=== PATIENT | male | born 1945 | race Caucasian/White ===

== ENCOUNTER → 2017-05-20 | Outpatient (CLI) | payer OTHER | LOC: BHFA 15:30 | PROVIDERS: ATTEND Internal Medicine Cardiovascular Disease | DX: I49.9 Cardiac arrhythmia, unspecified (principal) ==

== ENCOUNTER 2017-06-20 07:59 | Observation (INO) | payer OTHER ==
[2017-06-20] MEDS ORDERED: methylPREDNISolone SOD SUCC 125 MG/2 ML VIAL IVP ONE (08:07)
[2017-06-20] MEDS ORDERED: FAMOTIDINE 20 MG/NACL 50 ML IV ONE (08:07)
[2017-06-20] MEDS ORDERED: ASPIRIN EC 325 MG TAB PO ONE (08:07)
[2017-06-20] MEDS ORDERED: NS 1,000 ML IV ONE (08:07)
[2017-06-20] MEDS ORDERED: DIAZEPAM 5 MG TAB PO ONE (08:07)
--- NOTE | 2017-06-20 08:28 | CPEKG ---
Heart Rate: 49 RR Interval: 1224 P-R Interval: 196 QRSD Interval: 94 QT Interval: 488 QTC Interval: 441 P [place]: 64 QRS [place]: 34 T Wave [place]: 36 EKG Severity - OTHERWISE NORMAL ECG - EKG Impression: SINUS BRADYCARDIA Electronically Signed By: Tony Delgado 23-Jun-2017 09:13:42
[2017-06-20] MEDS ORDERED: methylPREDNISolone SOD SUCC 125 MG/2 ML VIAL ONE (08:29)
[2017-06-20] MEDS ORDERED: FAMOTIDINE 20 MG/NACL/50 ML BAG IV ONE (08:29)
[2017-06-20 08:42] LABS: % IMMATURE GRANULYOCYTES 0.6 % (0.0-1.1); ABSOLUTE IMMATURE GRANULOCYTES 0.03 10^3/uL (0.00-0.10); ADD DIFF? NO; ADD MORPH? NO; ADD SCAN? NO; ATYPICAL LYMPHOCYTE FLAG 10 (0-99); FRAGMENT RBC FLAG 0 (0-99); HEMATOCRIT 43.3 % (40.0-51.0); HEMOGLOBIN 14.9 g/dL (13.7-17.5); LEFT SHIFT FLG 0 (0-99); LIPEMIA HEMOLYSIS FLAG 90 (0-99); MEAN CELL HEMOGLOBIN CONCENTR. 34.4 g/dL (32.4-36.7); MEAN CELL VOLUME 90.2 fL (81.5-99.8); MEAN PLATELET VOLUME 12.6 fL (8.7-11.7); PLATELET CLUMPS FLAG 0 (0-99); PLATELET COUNT 102 10^3/uL (150-400); RED CELL DISTRIBUTION WIDTH 13.2 % (11.5-15.2)
[2017-06-20 08:57] LABS: ANION GAP 12 mEq/L (8-16); CALCIUM 9.3 mg/dL (8.5-10.4); CARBON DIOXIDE 21 mEq/l (22-31); CHLORIDE 108 mEq/L (97-110); CHOLESTEROL 161 mg/dL (140-220); CHOLESTEROL/HDL RATIO 2.48 RATIO (1.00-4.97); GLOMERULAR FILTRATION RATE > 60; GLUCOSE 97 mg/dL (70-100); HIGH DENSITY LIPOPROTEIN 65 mg/dL (40-65); LDL/HDL RATIO 1.25 RATIO (1.00-3.64); LOW DENSITY LIPOPROTEIN 81 mg/dL (80-100); NON-HIGH DENSITY LIPOPROTEIN 96 mg/dL (90-129); POTASSIUM 4.3 mEq/L (3.5-5.2); SODIUM 141 mEq/L (134-144); TRIGLYCERIDE 79 mg/dL (40-150); VERY LOW DENSITY LIPOPROTEINS 15 mg/dL (8-25)
--- NOTE | 2017-06-20 09:00 | PDHPUP ---
History & Physical Update H&P update statement: This history and physical update is based on an assessment of the patient which was completed after admission or registration (within 24 hours), but prior to the surgery/procedure. H&P update: H&P reviewed & patient examined, no change in patient's condition since H&P completed
--- NOTE | 2017-06-20 09:01 | PDPROPOC ---
Sedation Plan of Care Sedation Plan of Care: vital signs stable, mental status noted, patient educated of risks, benefits, alternatives, patient can tolerate sedation ASA Classification: ASA 3 Planned drugs: fentanyl, midazolam Mallampati Score: Class 3 Mallampati Reference Image: Patient passed 3-3-2 rule?: Yes
[2017-06-20 09:17] LABS: INR 0.97 (0.83-1.16); PROTIME(PATIENT) 12.8 SEC (12.0-15.0)
[2017-06-20] MEDS ORDERED: IOPAMIDOL (ISOVUE-370) 150 ML BTL IV ONE (10:04)
[2017-06-20] MEDS ORDERED: LIDOCAINE 1% 300 MG/30 ML SDV ONE (10:04)
[2017-06-20] MEDS ORDERED: MIDAZOLAM 2 MG/2 ML VIAL ONE (10:04)
[2017-06-20] MEDS ORDERED: fentaNYL 100 MCG/2 ML INJ ONE (10:04)
[2017-06-20] MEDS ORDERED: VERAPAMIL 5 MG/2 ML VIAL ONE (10:05)
[2017-06-20] MEDS ORDERED: HEPARIN 10,000 UNIT/10 ML MDV ONE (10:05)
--- NOTE | 2017-06-20 10:47 | PDDXCAT ---
Diagnostic Cath Note - . Date: 06/20/17 Corporate Trainer: [employer] Indication: Class I/II angina, intolerance to med therapy or failure to respond , other (Abnormal stress test with ST elevation (transient)) - Procedure Access: right wrist Procedure: left heart catheterization - Materials Left Heart Cath size: 5F Left Heart Cath materials: standard multipack (JL4, JR4, pigtail) - Findings-Left Heart Catheterization LM: 7mm in size and bifurcates into an LAD and circumflex system. No flow limiting obstruction or significant plaque. LAD: 3.5mm vessel. There a luminal irregularities consistent with underlying atherosclerosis. Maximal luminal stenosis is approx 30%. No flow limiting obstruction, dissection, or thrombus is identified. FRANCISCO J III flow. LCX: 3mm in size approximately. After the first obtuse marginal takeoff there is a 77% plaque area stenosis via QCA. FRANCISCO J III flow throughout. RCA: 3mm in size and dominant giving rise to the PDA and a posterolateral ventricular branch. There is a 20% ostial stenosis. Luminal irregularities are present consistent with atheroscleosis. No flow limiting obstruction was identified. FRANCISCO J III flow. EDP: 15mmHg. LVEF: LVEF is 60% and normal. Wall motion: There is normal wall motion. No significant mitral regurgitation. Complications: NONE. Estimated blood loss: <50ml Closure method: TR Band Assessment: The patient has [place] vessel coronary artery disease with flow limiting obstruction of the circumflex, subsequently repaired with Drug Eluting Stent. Dr. Amaral performed an intraoperative consultation for bilateral carotid angiography, no flow limiting obstruction of the carotids was identified. Plan: Dual antiplatelet therapy with Aspirin 325mn for the first month followed by Aspirin 81mg along with Plavix 75mg daily should be continued for at least 1 year following drug eluting stent implantation. No elective surgery for the first 3 months. Decisions to stop dual antiplatelet therapy before 1 year should involve our office, [facility] [phone] Intervention: A 6 Indonesian EBU 3.5 Launcher was used for guide catheter support. An 0.014 Intuition Wire was advanced across the lesion in question under direct fluoroscopic and angiographic guidance. The 77% lesion of the circumflex was then primarily stented with a [employer] 2.75mm 16mm Drug Eluting Stent. The post stent residual obstruction was 0%. There was FRANCISCO J III flow pre and post stent implantation.
[2017-06-20] MEDS ORDERED: IOPAMIDOL (ISOVUE-300) 150 ML BTL ONE (11:27)
[2017-06-20] MEDS ORDERED: CLOPIDOGREL BISULFATE 75 MG TAB ONE ×2 (11:47→12:08)
[2017-06-20] MEDS ORDERED: ATROPINE SULFATE 1 MG/10 ML SYR IVP PRN (11:48)
[2017-06-20] MEDS ORDERED: OXYCODONE/APAP 5/325 TAB PO PRN (11:48)
[2017-06-20] MEDS ORDERED: TEMAZEPAM 15 MG CAP PO PRN (11:48)
[2017-06-20] MEDS ORDERED: CLOPIDOGREL BISULFATE 75 MG TAB PO ONE (11:48)
[2017-06-20] MEDS ORDERED: NITROGLYCERIN 0.4 MG BTL SL PRN (11:48)
[2017-06-20] MEDS ORDERED: ACETAMINOPHEN 325 MG TAB PO PRN (11:48)
[2017-06-20] MEDS ORDERED: LORazepam 2 MG/ML INJ IVP PRN (11:48)
[2017-06-20] MEDS ORDERED: NS 1,000 ML IV SCH (12:00)
--- NOTE | 2017-06-20 13:59 | CPEKG ---
Heart Rate: 51 RR Interval: 1176 P-R Interval: 204 QRSD Interval: 92 QT Interval: 484 QTC Interval: 446 P Edna: 55 QRS Edna: 29 T Wave Edna: 18 EKG Severity - NORMAL ECG - EKG Impression: SINUS RHYTHM Preliminary Awaiting MD Review
[2017-06-20] MEDS ORDERED: ZOLPIDEM TARTRATE 5 MG TAB PO PRN (14:27)
[2017-06-20] MEDS: Pentosan Polysulfate Sodium [Elmiron] 100 MG PO SCH ×2 (17:20→22:33)
[2017-06-20] MEDS: TAMSULOSIN HCL 0.4 MG CAP PO SCH (20:53)
[2017-06-20] MEDS ORDERED: ESCITALOPRAM OXALATE 10 MG TAB PO SCH (21:00)
[2017-06-20] MEDS ORDERED: buPROPion XL 150 MG TAB PO SCH (21:00)
[2017-06-21 04:54] LABS: % IMMATURE GRANULYOCYTES 0.4 % (0.0-1.1); ABSOLUTE IMMATURE GRANULOCYTES 0.04 10^3/uL (0.00-0.10); ADD DIFF? NO; ADD MORPH? NO; ADD SCAN? NO; ATYPICAL LYMPHOCYTE FLAG 0 (0-99); FRAGMENT RBC FLAG 0 (0-99); HEMATOCRIT 39.1 % (40.0-51.0); HEMOGLOBIN 13.2 g/dL (13.7-17.5); LEFT SHIFT FLG 0 (0-99); LIPEMIA HEMOLYSIS FLAG 90 (0-99); MEAN CELL HEMOGLOBIN 30.8 pg (27.9-34.1); MEAN CELL HEMOGLOBIN CONCENTR. 33.8 g/dL (32.4-36.7); MEAN CELL VOLUME 91.4 fL (81.5-99.8); MEAN PLATELET VOLUME 12.6 fL (8.7-11.7); PLATELET CLUMPS FLAG 0 (0-99); PLATELET COUNT 92 10^3/uL (150-400); RED BLOOD CELL COUNT 4.28 10^6/uL (4.40-6.38)
[2017-06-21 05:15] LABS: ALBUMIN 3.6 g/dL (3.5-5.0); ANION GAP 9 mEq/L (8-16); ASPARTATE AMINOTRANSFERASE 26 IU/L (17-59); BILIRUBIN,TOTAL 0.5 mg/dL (0.1-1.4); CALCIUM 9.1 mg/dL (8.5-10.4); CARBON DIOXIDE 23 mEq/l (22-31); CHLORIDE 108 mEq/L (97-110); GLOMERULAR FILTRATION RATE > 60; GLUCOSE 82 mg/dL (70-100); LACTATE DEHYDROGENASE 383 IU/L (313-618); MAGNESIUM 2.1 mg/dL (1.6-2.3); POTASSIUM 4.4 mEq/L (3.5-5.2); SODIUM 140 mEq/L (134-144)
[2017-06-21] MEDS: Pentosan Polysulfate Sodium [Elmiron] 100 MG PO SCH (06:58)
[2017-06-21 08:31] VITALS: BP 142/70; PULSE 52; RESP 17; TEMP 98.1; O2SAT 98
--- NOTE | 2017-06-21 08:47 | CPEKG ---
Heart Rate: 52 RR Interval: 1154 P-R Interval: 188 QRSD Interval: 102 QT Interval: 468 QTC Interval: 436 P [place]: 68 QRS [place]: 37 T Wave [place]: 45 EKG Severity - NORMAL ECG - EKG Impression: SINUS RHYTHM Electronically Signed By: Tony Delgado 23-Jun-2017 09:12:32
[2017-06-21] MEDS ORDERED: ATORVASTATIN 80 MG PO SCH (09:00)
[2017-06-21] MEDS ORDERED: PANTOPRAZOLE SODIUM 40 MG TAB PO SCH (09:00)
[2017-06-21] MEDS ORDERED: ASPIRIN EC 325 MG TAB PO SCH (09:00)
[2017-06-21] MEDS ORDERED: ATORVASTATIN CALCIUM 40 MG TAB PO SCH (09:00)
[2017-06-21] MEDS ORDERED: CLOPIDOGREL BISULFATE 75 MG TAB PO SCH (09:00)
[2017-06-21] MEDS: TAMSULOSIN HCL 0.4 MG CAP PO SCH (09:26)
[2017-06-21] MEDS ORDERED: LISINOPRIL 5 MG TAB PO SCH (09:30)
--- NOTE | 2017-06-21 15:12 | GDS ---
[f rep st] DISCHARGE SUMMARY DISCHARGE DIAGNOSES: 1. Abnormal stress test with recent symptoms of exercise-induced dizziness and arrhythmias with exer tion. 2. Abnormal stress test with a Henriquez treadmill score of 4 which is intermediate risk. 3. Treated dyslipidemia. 4. Elevated blood pressures. 5. History of depression. 6. History of interstitial cystitis. 7. History of colonic polyp. PROCEDURES: 1. 06/20/2017, left heart catheterization which found normal left main, LAD with maximal luminal david nosis of 30%. Circumflex was 3 mm in size with an area of plaque 77% by QCA just after the first obt use marginal, RCA with 20% ostial stenosis. LVEDP of 15. LVEF of 60%. PTCA and stenting performed to circumflex with a drug-eluting stent. 2. 06/20/2017 carotid Doppler that showed normal left carotid arteriography for known history of car otid bruit. BRIEF HISTORY: Please see dictated H and P by Dr. Sharpe for complete details. In brief, the patien kaleb is a 72-year-old male with history of dyslipidemia and untreated elevated blood pressures, who had been starting a workout regimen to get in shape for hiking. While hiking, he noted skipping heart be ats, feeling off balance, dizziness and disorientation. A stress test was ordered for further evalua tion and found [address] depression. Due to his exertional symptoms worrisome for CCS clas s 3 angina, he proceeded to left heart catheterization and was found to have obstructive disease in a left circumflex vessel. HOSPITAL COURSE BY PROBLEM: 1. CCS 3 symptoms: He proceeded to left heart catheterization and was found to have obstructive dis ease involving his left circumflex. This was treated with PTCA and stenting. We reviewed dual antip latelet therapy. He is given a prescription for Plavix. 2. Elevated blood pressures: Through his hospital stay he has had pressures that could be as high a s 150. We reviewed options and he is agreeable to start lisinopril for medical management of this. We will plan for a basic metabolic panel in 1 week's time. 3. Dyslipidemia: He has been on atorvastatin for many years. His LDL cholesterol is 81, his trigly cerides 79, total cholesterol 161, HDL of 65. PHYSICAL EXAM: VITAL SIGNS: On day of discharge, blood pressure 142/70, heart rate 52 respirations 17, O2 saturation 98%, temp of 98.1 degrees Fahrenheit. GENERAL: He is a very pleasant male in no a pparent distress. EYES: PERRL. HEAD: Normocephalic atraumatic. HEART: Regular rate and rhythm. EXTREMITIES: Right wrist site without bruit, swelling, ecchymosis, or decrease pulse. LABORATORY DATA: CBC with a WBC 9.67, hemoglobin 13.2, hematocrit 39.1, platelet count 92. BMP with sodium 140, potassium 4.4, chloride 108, CO2 23, BUN 14, creatinine 1, glucose 82. Telemetry review ed shows sinus rhythm. RESULTS PENDING: None. DIET: We reviewed the DASH diet, and Mediterranean diet. ACTIVITY: He is advised on wrist precautions. He will also be contacted by cardiac rehab. DISCHARGE MEDICATIONS: Please see med reconciliation for complete details. He is being discharged o n all his home medications, which include, Wellbutrin, Ambien, tamsulosin, Elmiron, omeprazole, multi vitamin, Lexapro, atorvastatin. He has been started on lisinopril 5 mg p.o. daily. He is given a ne w prescription for Plavix. He will be started on aspirin 325 mg p.o. daily and we will plan to decre ase that dose to 81 mg daily after 1 month time. FOLLOWUP INSTRUCTIONS: 1. Groin precautions as reviewed. 2. Cardiac rehab. 3. Follow up in our office as scheduled next week. /[id number]/MODL
--- NOTE | 2017-06-21 16:25 | ASDISCHSUM ---
Discharge Information Plan Status:Home with No Needs Medically Cleared to Leave:06/21/2017 Discharge Date:06/21/2017 10:56 AM CM D/C Disposition: ADT D/C Disposition:Home, Routine, Self-Care Projected Discharge Date:06/21/2017 12:00 AM Transportation at D/C: Discharge Delay Reason: Follow-Up Date:06/21/2017 12:00 AM Discharge Slot: Final Diagnosis: Placement Information Patient Contact Information Contact Name:BELEN Relationship: Address:[address] [place] [address] City:[place] Alternate Phone: [facility]/Zip Code:[place] [address] Email: Financial Information Financial Class: Primary Plan Desc:MEDICARE OUTPATIENT Primary Plan Number:[id number] Secondary Plan Desc:[facility] Secondary Plan Number:[id number] Assessment Information Intervention Information
== END 2017-06-21 10:56 | disposition home or self-care (01) ==
LOC: FCATH 07:59 → F2W 14:44
PROVIDERS: ADMIT Internal Medicine Cardiovascular Disease; ATTEND Internal Medicine Interventional Cardiology
DX: I25.119 Atherosclerotic heart disease of native coronary artery with unspecified angina pectoris (principal); R94.30 Abnormal result of cardiovascular function study, unspecified; E78.5 Hyperlipidemia, unspecified; I10 Essential (primary) hypertension; Z86.010 Personal history of colon polyps; Z87.891 Personal history of nicotine dependence; Z91.041 Radiographic dye allergy status
CPT/HCPCS: 93005; 93458; C1769; C1874; C1887; C9600; J1200; J1644; J2250; J3010; Q9967

== ENCOUNTER → 2018-09-03 | Outpatient (CLI) | payer OTHER | END | disposition home or self-care (01) | LOC: CIMAGING 14:08 | PROVIDERS: ATTEND Psychiatry & Neurology Neurology | DX: F07.81 Postconcussional syndrome (principal) | CPT/HCPCS: 70450-PO ==

== ENCOUNTER → 2018-10-23 | Outpatient (CLI) | payer OTHER | LOC: BHFA 15:30 | PROVIDERS: ATTEND Internal Medicine Cardiovascular Disease | DX: R55 Syncope and collapse (principal) ==

== ENCOUNTER 2018-11-17 08:49 | Day surgery (SDC) | payer OTHER ==
[2018-11-17] MEDS ORDERED: LIDOCAINE 1% 300 MG/30 ML SDV SC ONE (08:51)
--- NOTE | 2018-11-17 09:30 | SUROPNOTE ---
APPLE Operative Report - Surgery PROCEDURE: [employer] CONFIRM loop recorder implantation. DATE OF PROCEDURE: 11/17/2018 DEVICE: [employer] CONFIRM, serial # [id number] COMPLICATIONS: None PRODUCTION LINE WELDER: Gregorio Sharpe MD INDICATION AND APPROPRIATE USE CRITERIA: Syncope PROCEDURE IN DETAIL: After informed consent was obtained and n.p.o. status was confirmed, the patient was cleaned, prepped and draped in a sterile fashion. ~ 10 mL of 1% Lidocaine solution was used as local anesthetic in the left parasternal area and the skin was sharply incised with a #15 blade. Pressure was used for local homeostasis. The provided blunt dissection equipment was used to form a small tunnel underneath the skin oriented at a positive 60 degrees from a horizontal orientation. The LINQ IQ was then implanted successfully. The skin was closed with interrupted garland and local pressure was held to obtain hemostasis. The patient tolerated the procedure without difficulties. FINAL IMPRESSION: Successful loop recorder insertion without immediate complication. Follow up in my office in 1 week for a wound check.
== END 2018-11-17 18:37 | disposition home or self-care (01) ==
LOC: FCATH 08:49
PROVIDERS: ATTEND Internal Medicine Cardiovascular Disease
PROC: 0JH602Z Insertion of Monitoring Device into Chest Subcutaneous Tissue and Fascia, Open Approach (ICD-10-PCS; principal; 2018-11-17)
DX: R55 Syncope and collapse (principal)
CPT/HCPCS: C1764

== ENCOUNTER → 2018-12-25 | Outpatient (CLI) | payer OTHER | LOC: EMCIMAGING 13:10 | PROVIDERS: ATTEND Family Medicine | DX: M53.3 Sacrococcygeal disorders, not elsewhere classified (principal); R93.7 Abnormal findings on diagnostic imaging of other parts of musculoskeletal system; M51.34 Other intervertebral disc degeneration, thoracic region; K59.00 Constipation, unspecified | CPT/HCPCS: 72100-PN; 72202-PN ==

== ENCOUNTER → 2019-01-02 | Outpatient (CLI) | payer OTHER | LOC: FIMAGING 18:24 | PROVIDERS: ATTEND Family Medicine | DX: M24.851 Other specific joint derangements of right hip, not elsewhere classified (principal); M24.852 Other specific joint derangements of left hip, not elsewhere classified; M51.36 Other intervertebral disc degeneration, lumbar region; M48.061 Spinal stenosis, lumbar region without neurogenic claudication ==